=== PATIENT | male | born 1960 | race Caucasian/White ===

== ENCOUNTER 2016-08-23 12:32 | Emergency (ER) | payer MEDICAID ==
--- NOTE | 2016-08-23 13:20 | EDM.PDOC ---
ED HPI GI/ABDOMINAL - General Chief Complaint: Gastrointestinal Problem Stated Complaint: BLOOD IN STOOL Time Seen by Provider: 08/23/16 12:49 Source of Information: Reports: Patient, RN notes reviewed History Limitations: Reports: No limitations - History of Present Illness INITIAL COMMENTS - FREE TEXT/NARRATIVE: The patient states that he has had epigastric pain for 3 days - a burning sensation that feels better if he eats crackers and milk. He also reports black constipation for the past 2 days. The patient states that he started metformin 4 days ago, for newly diagnosed diabetes. He reports nausea, but no vomiting. No urinary symptoms. The patient has been taking Pepto-Bismol 3 times a day for the past 2 days, and started taking [id number] Prilosec once a day, 2 days ago. The patient reports similar symptoms about 7 years ago. 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 He states that he was treated with an acid medicine for about 2 years, but let it lapse. His last EGD was about a year ago, in [place]. - Related Data Allergies/ADRs: Allergies Allergy/AdvReac Type Severity Reaction Status Date / Time No Known Allergies Allergy Verified 08/23/16 12:40 Home Meds: Home Meds Lisinopril [Prinivil] 10 mg PO DAILY 08/23/16 [History] Nadolol [Naldol] 40 mg PO DAILY 08/23/16 [History] Omeprazole 20 mg PO DAILY 08/23/16 [History] metFORMIN HCl [Glucophage] 1,000 mg PO BID 08/23/16 [History] Past Medical History Cardiovascular History: Reports: Hypertension Gastrointestinal History: Reports: Cirrhosis (With esophageal varices), Colon polyp, GERD (With Caldera esophagus), Hepatitis Genitourinary History: Reports: Renal calculus Endocrine/Metabolic History: Reports: Diabetes, type II - Past Surgical History HEENT Surgical History: Reports: Oral surgery (Numerous teeth extractions) GI Surgical History: Reports: Hernia repair/other (Umbilical herniorrhaphy 2012) , Other (see below) (Splenectomy 2001. Pyloric stenosis release as an infant) Musculoskeletal Surgical History: Reports: Carpal tunnel (bilateral) Social & Family History - Tobacco Use Smoking Status *Q: Current Every Day Smoker Years of Tobacco use: 10 Packs/Tins Daily: 0.3 Packs/Tins Daily Comment: Down from 05/26 ppd - Alcohol Use Alcohol Use History: Yes Alcohol Use Frequency: Rarely - Recreational Drug Use Recreational Drug Use: No - Living Situation & Occupation Living situation: Reports: single, other (with a friend) Occupation: unemployed ED ROS GENERAL - Review of Systems Review Of Systems: See Below Constitutional: Reports: no symptoms HEENT: Reports: No symptoms Respiratory: Reports: No Symptoms Cardiovascular: Reports: No symptoms Endocrine: Reports: no symptoms GI/Abdominal: Reports: No symptoms : Reports: no symptoms Musculoskeletal: Reports: no symptoms Skin: Reports: no symptoms Neurological: Reports: No Symptoms Psychiatric: Reports: No symptoms Hematologic/Lymphatic: Reports: no symptoms Immunologic: Reports: no symptoms ED EXAM, GI/ABD - Physical Exam Exam: See Below Exam Limited By: No limitations General Appearance: alert, WD/WN, no apparent distress Eyes: bilateral: normal appearance, EOMI Ears: normal external exam, hearing grossly normal Nose: normal inspection, no blood Throat/Mouth: Normal inspection, Normal lips, Normal voice, No airway compromise Head: atraumatic, normocephalic Neck: normal inspection, full range of motion Respiratory/Chest: no respiratory distress, lungs clear, normal breath sounds, no accessory muscle use Cardiovascular: normal peripheral pulses, regular rate, rhythm, no edema, no gallop, no JVD, no murmur, no rub GI/Abdominal: normal bowel sounds, soft, no organomegaly, no distention, no abnormal bruit, no mass, tenderness (Epigastric region only. Nontender elsewhere.) (Male) Exam: Deferred Rectal (Males) Exam: Normal exam, Normal rectal tone, Prostate normal, Black stool, Heme - stool Back Exam: normal inspection, full range of motion. No: CVA tenderness (L), CVA tenderness (R) Extremities: normal inspection, normal range of motion, no pedal edema, normal capillary refill Neurological: alert, oriented, normal cognition, no motor/sensory deficits Psychiatric: normal affect Skin Exam: Warm, Dry, Intact, Normal color, No rash Lymphatic: no adenopathy Course - Vital Signs Last Recorded V/S: Last Vital Signs Temp 36.4 C 08/23/16 12:40 Pulse 72 08/23/16 13:30 Resp 16 08/23/16 12:40 BP 133/72 08/23/16 13:30 Pulse Ox 97 08/23/16 13:30 - Re-Assessments/Exams Free Text/Narrative Re-Assessment/Exam: 08/23/16 13:15 The patient's stool is dark, but heme negative. It is almost certainly because of the Pepto-Bismol that he has been taking. With respect to his dyspepsia, I am recommending that he increase his Prilosec to twice a day, and that if his symptoms persist, he should followup with Dr. Puentes for possible EGD. 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 Departure - Departure Time of Disposition: 13:16 Disposition: Home, Self-Care 01 Condition: good Clinical Impression: Stool color black, Dyspepsia Referrals: Rakesh Sevilla PA-C [Primary Care Provider] - Yelitza Puentes MD [Physician] - Forms: ED Department Discharge Additional Instructions: You were seen in the emergency room today for black stools and upper abdominal pain. On examination, your stools are dark, but blood-negative. It is MOST LIKELY that your stools are dark because of the Pepto-Bismol that you have been taking. We recommend that you stop taking Pepto-Bismol right away. We recommend that you increase your Prilosec to one tablet twice a day. If you are still having abdominal pain after a few days of taking Prilosec twice a day, please followup with the surgeon Dr. Yelitza Puentes for evaluation, including a possible EGD. Your metformin should be swallowed whole. Do not crush it, break it, or chew it. Take it with food. If any other problems, please do not hesitate to return to the ER.
[2016-08-23 14:05] VITALS: BP 133/72
== END 2016-08-23 13:35 | disposition home or self-care (01) ==
LOC: JD.ED 12:32
DX: R10.13 Epigastric pain (principal); E11.9 Type 2 diabetes mellitus without complications; R19.5 Other fecal abnormalities; F17.210 Nicotine dependence, cigarettes, uncomplicated; Z79.899 Other long term (current) drug therapy; Z79.84 Long term (current) use of oral hypoglycemic drugs; Z98.890 Other specified postprocedural states
CPT/HCPCS: 99282; 99283

== ENCOUNTER 2017-02-21 03:51 | Emergency (ER) | payer MEDICAID ==
[2017-02-21 04:01] VITALS: BP 148/72
[2017-02-21] MEDS ORDERED: Acetaminophen/oxyCODONE 325-5 MG Tab PO ONE (04:19)
[2017-02-21] MEDS ORDERED: Clindamycin HCl 150 MG Cap PO ONE (04:20)
--- NOTE | 2017-02-21 04:23 | EDM.PDOC ---
ED HPI GENERAL MEDICAL PROBLEM - General Chief Complaint: ENT Problem Stated Complaint: POSS INFECTION IN MOUTH Time Seen by Provider: 02/21/17 04:17 Source of Information: Reports: Patient History Limitations: Reports: No Limitations - History of Present Illness INITIAL COMMENTS - FREE TEXT/NARRATIVE: 56-year-old male presents the ED due to dental pain and inability to sleep due to the throbbing discomfort. He's had swelling and pain in his right upper gingiva margin for the better part of a week. [employer] and was not home until today. States tonight he can't sleep because of the severity of the pain. He admits that he drank 4 beers and is used to Ambasil topically and taken Advil without relief. Of note he said all of his upper teeth removed over the last year. He still is getting shards of teeth or bone coming out of the gingiva margin intermittently since time of surgery. Pain is radiating up into his right ear in hurting his whole right face. 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: Reports: Acetaminophen, NSAIDS, Other (see below) (Ambasil.) Right Upper Tooth/Teeth Pain Score (Numeric/FACES): 10 - Related Data Allergies Allergy/AdvReac Type Severity Reaction Status Date / Time No Known Allergies Allergy Verified 02/21/17 04:01 Home Meds: Home Meds Nadolol [Naldol] 40 mg PO DAILY 08/23/16 [History] Omeprazole 20 mg PO DAILY 08/23/16 [History] metFORMIN HCl [Glucophage] 1,000 mg PO BID 08/23/16 [History] Clindamycin HCl 300 mg PO TID #24 capsule 02/21/17 [Rx] oxyCODONE HCl/Acetaminophen [Percocet 5-325 mg Tablet] 1 - 2 each PO Q4H PRN # 20 tablet 02/21/17 [Rx] Past Medical History Cardiovascular History: Reports: Hypertension Gastrointestinal History: Reports: Cirrhosis, Colon Polyp, GERD, Hepatitis Genitourinary History: Reports: Renal Calculus Endocrine/Metabolic History: Reports: Diabetes, Type II - Past Surgical History HEENT Surgical History: Reports: Oral Surgery GI Surgical History: Reports: Hernia Repair/Other, Other (See Below) Other GI Surgeries/Procedures: pyloric stenosis Musculoskeletal Surgical History: Reports: Carpal Tunnel Social & Family History - Family History Cardiac: Reports: Hypertension - Tobacco Use Smoking Status *Q: Current Every Day Smoker Years of Tobacco use: 30 Packs/Tins Daily: 0.5 - Caffeine Use Caffeine Use: Reports: Coffee - Recreational Drug Use Recreational Drug Use: No - Living Situation & Occupation Living situation: Reports: Single, Other Occupation: Unemployed ED ROS ENT - Review of Systems Review Of Systems: See Below Constitutional: Reports: Fatigue, Decreased Appetite (not sleeping.). Denies: Fever, Chills, Malaise, Weakness, Weight Loss HEENT: Reports: Dental Pain (right upper gingiva is painful and swollen.), Ear Pain (he is referred to his right ear.), Other Respiratory: Reports: No Symptoms (right hemifacial pain), Wheezing ( chronically from cigarette smoking), Cough Cardiovascular: Reports: No Symptoms (occasionally.) Endocrine: Reports: No Symptoms GI/Abdominal: Reports: No Symptoms : Reports: No Symptoms Musculoskeletal: Reports: Neck Pain, Back Pain (occasionally) Skin: Reports: No Symptoms (occasionally.) Neurological: Reports: No Symptoms Psychiatric: Reports: No Symptoms ED EXAM, ENT - Physical Exam Exam: See Below Exam Limited By: Intoxication General Appearance: Alert, Moderate Distress Eye Exam: Bilateral Eye: Nystagmus Ears: Normal TMs Mouth/Throat: Normal Lips, Other (all the upper teeth have been previously removed. He does have swelling and erythema of the right upper mucosa). No: Normal Gums, Normal Oropharynx, Normal Teeth Head: Atraumatic Neck: Normal Inspection, Supple, Non-Tender, Full Range of Motion. No: Lymphadenopathy (L), Lymphadenopathy (R) Respiratory/Chest: No Respiratory Distress, No Accessory Muscle Use, Wheezing ( on forced expiration.) Cardiovascular: Normal Peripheral Pulses, Regular Rate, Rhythm, No Edema, No Gallop, No Murmur Course - Vital Signs Last Recorded V/S: Last Vital Signs Temp 36.4 C 02/21/17 03:57 Pulse 84 02/21/17 03:57 Resp 16 02/21/17 03:57 BP 148/72 H 02/21/17 03:57 Pulse Ox 97 02/21/17 03:57 - Orders/Labs/Meds Meds: Medications Discontinued Medications Generic Name Dose Route Start Last Admin Trade Name Freq PRN Reason Stop Dose Admin Clindamycin HCl 300 mg 02/21/17 04:20 Cleocin PO 02/21/17 04:21 ONETIME ONE Oxycodone/Acetaminophen 2 tab 02/21/17 04:19 Percocet 325-5 Mg PO 02/21/17 04:20 ONETIME ONE - Radiology Interpretation Free Text/Narrative:: 56-year-old male slightly intoxicated presents to the ED due to persistent upper gingiva pain. He said all of his upper teeth removed over the last year. Still spitting out intermittent shards of bone and or teeth. Has developed a gingiva all abscess right upper maxillary area over the last 5 days. Can stand the pain tonight. He drank 4 beer and is used ampicillin Motrin with no relief. On examination there is evidence of erythema swelling and pain over the right upper gingiva margin which would be in the position of the first molar tooth. No abscess is evident that would benefit from drainage. Treated with clindamycin 300 mg 3 times a day for the next 8 days first tablet provided through the ED. Percocet tabs 5/3/25 one or 2 every 4-6 hours for pain relief. Continue Motrin 600 mg every 6 hours for pain and inflammation as well. Her up with dentist for panoramic x-ray to see if there is a piece of bone or tooth that needs excision if similar problems persist. Departure - Departure Time of Disposition: 04:17 Disposition: Home, Self-Care 01 Condition: Fair Clinical Impression: Gingival abscess - Discharge Information Prescriptions: Clindamycin HCl 300 mg PO TID #24 capsule oxyCODONE HCl/Acetaminophen [Percocet 5-325 mg Tablet] 1 - 2 each PO Q4H PRN # 20 tablet PRN Reason: pain relief. Referrals: PCP,None [Primary Care Provider] - Forms: ED Department Discharge Additional Instructions: Evaluation the emergency room today in regards to pain in the upper right gingiva. Previous total extraction of all teeth from the upper teeth over a year ago. Development of pain and swelling in the right gingiva over week ago. Is there is most likely a broken piece of bone or tooth retained underneath the gingiva margin that is likely infected. Secondary infection can occur from rubbing of the gingiva from dentures.. At any rate there is an evidence of an infection the right upper gingiva. Treatment is therefore continuing Motrin 6 mg every 6 hours to relieve pain and inflammation. Percocet tabs one or 2 every 4-6 hours for pain not relieved by Motrin alone. Of note if you take these tablets you cannot operate a motor vehicle or machinery as they may impair your judgment and coordination. Antibiotic is to be clindamycin 300 mg 3 times daily for the next 8 days to clear up infection. The pros persist follow-up with dentist as advised as the panoramic dental x-ray machine can pickup broken bone or residual broken tooth in the gingiva that may deep need to be removed.
== END 2017-02-21 04:30 | disposition home or self-care (01) ==
LOC: JD.ED 03:51
DX: K05.219 Aggressive periodontitis, localized, unspecified severity (principal); I10 Essential (primary) hypertension; E11.9 Type 2 diabetes mellitus without complications; F17.210 Nicotine dependence, cigarettes, uncomplicated; Z79.84 Long term (current) use of oral hypoglycemic drugs; Z79.899 Other long term (current) drug therapy
CPT/HCPCS: 99283; A9270

== ENCOUNTER 2017-04-10 04:45 | Emergency (ER) | payer MEDICAID ==
[2017-04-10] MEDS ORDERED: Ondansetron 4 MG/2 ML SDV IVPUSH ONE (05:07)
[2017-04-10] MEDS ORDERED: Sodium Chloride 0.9% 10 ML Syringe FLUSH PRN (05:07)
[2017-04-10] MEDS ORDERED: Pantoprazole 40 MG Vial IVPUSH ONE (05:08)
--- NOTE | 2017-04-10 05:14 | EDM.PDOC ---
ED HPI GENERAL MEDICAL PROBLEM - General Chief Complaint: Gastrointestinal Problem Stated Complaint: VOMMITING BLOOD Time Seen by Provider: 04/10/17 05:06 Source of Information: Reports: Patient History Limitations: Reports: No Limitations - History of Present Illness INITIAL COMMENTS - FREE TEXT/NARRATIVE: The patient presents this morning because he vomited blood. The patient has a history of esophageal verricies, smith's esophagus and GERD. He is on omeprazole 2 times per day. He quit drinking years ago but last night he was feeling stressed out and drank some vodka. This morning he was nauseated and vomited up some blood. He has no abdominal pain at this time. He denies fever. He had some chills just before he vomited. He was also breathing hard. He has no chest pain or shortness of breath. Onset: Sudden Duration: Minutes: Location: Reports: Abdomen Quality: Reports: Ache (Gone now) Severity: Mild Improves with: Reports: None Worsens with: Reports: None Context: Reports: Activity (He woke up from sleeping and vomitted) Associated Symptoms: Reports: Nausea/Vomiting. Denies: Chest Pain, Cough, Fever /Chills, Headaches, Shortness of Breath - Related Data Allergies Allergy/AdvReac Type Severity Reaction Status Date / Time No Known Allergies Allergy Verified 02/21/17 04:01 Home Meds: Home Meds Nadolol [Naldol] 40 mg PO DAILY 08/23/16 [History] Omeprazole 20 mg PO DAILY 08/23/16 [History] metFORMIN HCl [Glucophage] 1,000 mg PO BID 08/23/16 [History] Clindamycin HCl 300 mg PO TID #24 capsule 02/21/17 [Rx] Hydrocodone/Acetaminophen [Hydrocodon-Acetaminophen 5-325] 1 - 2 each PO Q6HR PRN #20 tablet 04/10/17 [Rx] Past Medical History Cardiovascular History: Reports: Hypertension Gastrointestinal History: Reports: Cirrhosis, Colon Polyp, GERD, GI Bleed, Hepatitis, Other (See Below) Other Gastrointestinal History: esophageal varices Genitourinary History: Reports: Renal Calculus Endocrine/Metabolic History: Reports: Diabetes, Type II - Past Surgical History HEENT Surgical History: Reports: Oral Surgery GI Surgical History: Reports: Hernia Repair/Other, Other (See Below) Other GI Surgeries/Procedures: pyloric stenosis Musculoskeletal Surgical History: Reports: Carpal Tunnel Social & Family History - Family History Family Medical History: Noncontributory Cardiac: Reports: Hypertension - Tobacco Use Smoking Status *Q: Current Every Day Smoker Years of Tobacco use: 40 Packs/Tins Daily: 0.5 - Caffeine Use Caffeine Use: Reports: Coffee - Alcohol Use Date of Last Drink: 04/09/17 Time of Last Drink: 22:00 - Recreational Drug Use Recreational Drug Use: No - Living Situation & Occupation Living situation: Reports: Single, Other Occupation: Unemployed ED ROS GENERAL - Review of Systems Review Of Systems: See Below Constitutional: Reports: Chills. Denies: Fever HEENT: Reports: No Symptoms Respiratory: Reports: No Symptoms Cardiovascular: Reports: No Symptoms Endocrine: Reports: No Symptoms GI/Abdominal: Reports: Nausea, Vomiting. Denies: Abdominal Pain : Reports: No Symptoms Musculoskeletal: Reports: No Symptoms Skin: Reports: No Symptoms ED EXAM, GI/ABD - Physical Exam Exam: See Below Exam Limited By: No Limitations General Appearance: Alert, No Apparent Distress Ears: Normal External Exam Nose: Normal Inspection Head: Atraumatic, Normocephalic Neck: Normal Inspection Respiratory/Chest: No Respiratory Distress, Lungs Clear, Normal Breath Sounds Cardiovascular: Regular Rate, Rhythm, No Edema, No Murmur GI/Abdominal Exam: Soft, Non-Tender, No Organomegaly, No Mass Back Exam: Normal Inspection Extremities: Normal Inspection Course - Vital Signs Last Recorded V/S: Last Vital Signs Temp 97.4 F 04/10/17 04:51 Pulse 88 04/10/17 04:51 Resp 16 04/10/17 04:51 BP Pulse Ox 96 04/10/17 04:51 - Orders/Labs/Meds Orders: Active Orders 24 hr Category Date Time Status Cardiac Monitoring [RC] . DIRECTED Care 04/10/17 05:07 Active Peripheral IV Care [RC] . DIRECTED Care 04/10/17 05:07 Active PATIENT RETYPE [BBK] Stat Lab 04/10/17 04:55 Results TYPE AND SCREEN [BBK] Stat Lab 04/10/17 04:55 Results Pantoprazole [ProTONIX IV] 80 mg Med 04/10/17 05:15 Active Sodium Chloride 0.9% [Normal Saline] 100 ml IV Q10H Sodium Chloride 0.9% [Normal Saline] 1,000 ml Med 04/10/17 05:15 Active IV ASDIRECTED Sodium Chloride 0.9% [Saline Flush] Med 04/10/17 05:07 Active 10 ml FLUSH ASDIRECTED PRN ED Antiemetic Medication Reflex [OM.PC] Stat Oth 04/10/17 05:07 Ordered Peripheral IV Insertion Adult [OM.PC] Stat Oth 04/10/17 05:07 Ordered Medication Orders Pantoprazole Sodium 80 mg/ (Sodium Chloride) 100 mls @ 10 mls/hr IV Q10H FAITH Last Admin: 04/10/17 05:24 Dose: 10 mls/hr Sodium Chloride (Normal Saline) 1,000 mls @ 125 mls/hr IV ASDIRECTED FAITH Last Admin: 04/10/17 05:24 Dose: 125 mls/hr Sodium Chloride (Saline Flush) 10 ml FLUSH ASDIRECTED PRN PRN Reason: Keep Vein Open Last Admin: 04/10/17 05:24 Dose: 10 ml Labs: Laboratory Tests 04/10/17 04/10/17 04/10/17 Range/Units 04:55 04:55 04:55 WBC 6.77 (4.23-9.07) K/mm3 RBC 3.73 L (4.63-6.08) M/mm3 Hgb 11.6 L (13.7-17.5) gm/L Hct 33.7 L (40.1-51.0) % MCV 90.3 (79.0-92.2) fl MCH 31.1 (25.7-32.2) pg MCHC 34.4 (32.2-35.5) g/dl RDW Std Deviation 49.4 H (35.1-43.9) fL Plt Count 126 L (163-337) K/mm3 MPV 12.5 H (9.4-12.3) fl Neut % (Auto) 34.3 (34.0-67.9) % Lymph % (Auto) 44.6 (21.8-53.1) % Ector % (Auto) 15.4 H (5.3-12.2) % Eos % (Auto) 4.9 (0.8-7.0) Baso % (Auto) 0.7 (0.1-1.2) % Neut # (Auto) 2.32 (1.78-5.38) K/mm3 Lymph # (Auto) 3.02 (1.32-3.57) K/mm3 Ector # (Auto) 1.04 H (0.30-0.82) K/mm3 Eos # (Auto) 0.33 (0.04-0.54) K/mm3 Baso # (Auto) 0.05 (0.01-0.08) K/mm3 Manual Slide Review Abnormal smear Sodium 135 L (136-145) mEq/L Potassium 5.1 (3.5-5.1) mEq/L Chloride 103 (98-107) mEq/L Carbon Dioxide 21 (21-32) mEq/L Anion Gap 16.1 H (5-15) BUN 24 H (7-18) mg/dL Creatinine 1.2 (0.7-1.3) mg/dL Est Cr Clr Drug Dosing 78.01 mL/min Estimated GFR (MDRD) > 60 (>60) mL/min BUN/Creatinine Ratio 20.0 H (14-18) Glucose 196 H (74-106) mg/dL Calcium 10.0 (8.5-10.1) mg/dL Total Bilirubin 3.7 H (0.2-1.0) mg/dL AST 71 H (15-37) U/L ALT 42 (16-63) U/L Alkaline Phosphatase 130 H (46-116) U/L Total Protein 7.1 (6.4-8.2) g/dl Albumin 2.3 L (3.4-5.0) g/dl Globulin 4.8 gm/dL Albumin/Globulin Ratio 0.5 L (1-2) Lipase 611 H (73-393) U/L Ethyl Alcohol 0.03 (0.00) gm% Blood Type A POSITIVE Gel Antibody Screen Negative Meds: Medications Generic Name Dose Route Start Last Admin Trade Name Freq PRN Reason Stop Dose Admin Pantoprazole Sodium 80 mg/ 100 mls @ 10 mls/hr 04/10/17 05:15 04/10/17 05:24 Sodium Chloride IV 10 mls/hr Q10H FAITH Administration Sodium Chloride 1,000 mls @ 125 mls/hr 04/10/17 05:15 04/10/17 05:24 Normal Saline IV 125 mls/hr ASDIRECTED FAITH Administration Sodium Chloride 10 ml 04/10/17 05:07 04/10/17 05:24 Saline Flush FLUSH 10 ml ASDIRECTED PRN Administration Keep Vein Open Discontinued Medications Generic Name Dose Route Start Last Admin Trade Name Obed PRN Reason Stop Dose Admin Lidocaine HCl 1 ml 04/10/17 05:30 Xylocaine 4% Top Soln MUCMEM 04/10/17 05:31 ONETIME ONE Lidocaine HCl 15 ml 04/10/17 05:35 04/10/17 05:36 Xylocaine 2% Viscous MUCMEM 04/10/17 05:36 15 ml ASDIRECTED ONE Administration Lidocaine HCl Confirm 04/10/17 05:37 Xylocaine 2% Viscous Administered 04/10/17 05:38 Dose 15 ml .ROUTE .STK-MED ONE Ondansetron HCl 4 mg 04/10/17 05:07 04/10/17 05:24 Zofran IVPUSH 04/10/17 05:08 4 mg ONETIME ONE Administration Pantoprazole Sodium 80 mg 04/10/17 05:08 04/10/17 05:24 Protonix Iv IVPUSH 04/10/17 05:09 80 mg .BOLUS ONE Administration - Re-Assessments/Exams Free Text/Narrative Re-Assessment/Exam: 04/10/17 05:14 I ordered an IV NS at 125mL/hr, zofran 4mg IV, protonix 80mg IV, protonix drip of 8mg/hr, labs and type and screen. 04/10/17 06:37 His Hgb was a little low at 11.6. His Na was a little low at 135. His glucose was elevated at 196. His AST was elevated at 71. His lipase was elevated at 611. His ETOH was elevated at 0.03. He is feeling better and he has not vomited. I gave him some viscus lidocaine for a gum infection he is dealing with. He is taking clindamycin for it. Departure - Departure Time of Disposition: 06:40 Disposition: Home, Self-Care 01 Condition: Good Clinical Impression: Gingival abscess, Dyspepsia Hematemesis Qualifiers: Nausea presence: with nausea Qualified Code(s): K92.0 - Hematemesis Gastritis Qualifiers: Gastritis type: alcoholic Chronicity: acute Gastritis bleeding: with bleeding Qualified Code(s): K29.21 - Alcoholic gastritis with bleeding Pancreatitis Qualifiers: Chronicity: acute Pancreatitis type: alcohol induced Acute pancreatitis complication: no infection or necrosis Qualified Code(s): K85.20 - Alcohol induced acute pancreatitis without necrosis or infection - Discharge Information Prescriptions: Hydrocodone/Acetaminophen [Hydrocodon-Acetaminophen 5-325] 1 - 2 each PO Q6HR PRN #20 tablet PRN Reason: Pain Referrals: PCP,None [Primary Care Provider] - Mikel Marquez [Physician] - 1 Week Forms: ED Department Discharge Additional Instructions: Take omeprazole as prescribed 2 times per day. Drink clear liquids today and advance tomorrow as tolerated. Please return if you are worse. Such as more pain, nausea or vomiting. Do not drink alcohol. - My Orders Last 24 Hours: My Active Orders 04/10/17 04:55 PATIENT RETYPE [BBK] Stat TYPE AND SCREEN [BBK] Stat 04/10/17 05:07 Cardiac Monitoring [RC] . DIRECTED Peripheral IV Care [RC] . DIRECTED Sodium Chloride 0.9% [Saline Flush] 10 ml FLUSH ASDIRECTED PRN ED Antiemetic Medication Reflex [OM.PC] Stat Peripheral IV Insertion Adult [OM.PC] Stat 04/10/17 05:15 Pantoprazole [ProTONIX IV] 80 mg Sodium Chloride 0.9% [Normal Saline] 100 ml IV Q10H Sodium Chloride 0.9% [Normal Saline] 1,000 ml IV ASDIRECTED - Assessment/Plan Last 24 Hours: My Active Orders 04/10/17 04:55 PATIENT RETYPE [BBK] Stat TYPE AND SCREEN [BBK] Stat 04/10/17 05:07 Cardiac Monitoring [RC] . DIRECTED Peripheral IV Care [RC] . DIRECTED Sodium Chloride 0.9% [Saline Flush] 10 ml FLUSH ASDIRECTED PRN ED Antiemetic Medication Reflex [OM.PC] Stat Peripheral IV Insertion Adult [OM.PC] Stat 04/10/17 05:15 Pantoprazole [ProTONIX IV] 80 mg Sodium Chloride 0.9% [Normal Saline] 100 ml IV Q10H Sodium Chloride 0.9% [Normal Saline] 1,000 ml IV ASDIRECTED
[2017-04-10] MEDS ORDERED: Sodium Chloride 0.9% 1,000 ML IV SCH (05:15)
[2017-04-10] MEDS ORDERED: Pantoprazole 80 MG in Sodium Chloride 0.9% 100 ML IV SCH (05:15)
[2017-04-10] MEDS ORDERED: Lidocaine 4% Top Soln 50 ML Bottle MUCMEM ONE (05:30)
[2017-04-10] MEDS ORDERED: Lidocaine 2% Viscous Solution 15 ML Cup MUCMEM ONE (05:35)
[2017-04-10] MEDS ORDERED: Lidocaine 2% Viscous Solution 15 ML Cup ONE (05:37)
== END 2017-04-10 06:55 | disposition home or self-care (01) ==
LOC: JD.ED 04:45
DX: K29.21 Alcoholic gastritis with bleeding (principal); K85.20 Alcohol induced acute pancreatitis without necrosis or infection; K05.219 Aggressive periodontitis, localized, unspecified severity; I10 Essential (primary) hypertension; E11.9 Type 2 diabetes mellitus without complications; F17.210 Nicotine dependence, cigarettes, uncomplicated; Z79.84 Long term (current) use of oral hypoglycemic drugs; Z79.899 Other long term (current) drug therapy
CPT/HCPCS: 36415; 80053; 83690; 85025; 86850; 86900; 86901; 96361; 96365; 96376; 99284; A9270; C9113; G0480; J2405; J7030; J7040; J7050

== ENCOUNTER 2017-04-13 13:08 | Emergency (ER) | payer MEDICAID ==
[2017-04-13 13:26] VITALS: BP 140/74
--- NOTE | 2017-04-13 14:06 | EDM.PDOC ---
ED HPI GENERAL MEDICAL PROBLEM - General Chief Complaint: ENT Problem Stated Complaint: MOUTH INFECTION/BLACK STOOL Time Seen by Provider: 04/13/17 13:54 Source of Information: Reports: Patient History Limitations: Reports: No Limitations - History of Present Illness INITIAL COMMENTS - FREE TEXT/NARRATIVE: Patient is a 57-year-old male with a history of esophageal varices was evaluated this past week for vomiting up blood. Patient states he drank approximately 1 pint of vodka that day thus prompting the bleeding. Bleeding subsided. He was started on omeprazole and has been taking 40 mg every day. In addition at that time was diagnosed with abscess to the left gumline with increased swelling noted. Patient has no teeth to the upper palate they have all been pulled. Has been taking clindamycin and hydrocodone as prescribed. States the swelling has come down since yesterday. Continues to have pain present. Has not been taking any NSAIDs as instructed. He has noticed some black tarry stools concerning for GI bleed. Denies any dizziness, shortness of breath, chest pain, abdominal pain, nausea/vomiting, dysuria, or any additional complaints. Gums Pain Score (Numeric/FACES): 10 - Related Data Allergies Allergy/AdvReac Type Severity Reaction Status Date / Time No Known Allergies Allergy Verified 04/13/17 13:19 Home Meds: Home Meds Omeprazole 20 mg PO DAILY 08/23/16 [History] metFORMIN HCl [Glucophage] 1,000 mg PO BID 08/23/16 [History] Clindamycin HCl 300 mg PO TID #24 capsule 02/21/17 [Rx] Hydrocodone/Acetaminophen [Hydrocodon-Acetaminophen 5-325] 1 - 2 each PO Q6HR PRN #20 tablet 04/10/17 [Rx] Nadolol [Naldol] 40 mg PO DAILY #30 04/13/17 [Rx] Past Medical History HEENT History: Reports: Impaired Vision Cardiovascular History: Reports: Hypertension Gastrointestinal History: Reports: Cirrhosis, Colon Polyp, GERD, GI Bleed, Hepatitis, Other (See Below) Other Gastrointestinal History: esophageal varices Genitourinary History: Reports: Renal Calculus Endocrine/Metabolic History: Reports: Diabetes, Type II - Past Surgical History HEENT Surgical History: Reports: Oral Surgery GI Surgical History: Reports: Hernia Repair/Other, Other (See Below) Other GI Surgeries/Procedures: pyloric stenosis Musculoskeletal Surgical History: Reports: Carpal Tunnel Social & Family History - Family History Family Medical History: Noncontributory Cardiac: Reports: Hypertension - Tobacco Use Smoking Status *Q: Current Every Day Smoker Years of Tobacco use: 1 Packs/Tins Daily: 20 - Caffeine Use Caffeine Use: Reports: Coffee - Recreational Drug Use Recreational Drug Use: No - Living Situation & Occupation Living situation: Reports: Single, Other Occupation: Unemployed ED ROS GENERAL - Review of Systems Review Of Systems: ROS reveals no pertinent complaints other than HPI. ED EXAM, GI/ABD - Physical Exam Exam: See Below Exam Limited By: No Limitations General Appearance: Alert, WD/WN, No Apparent Distress Ears: Hearing Grossly Normal Nose: Normal Inspection Throat/Mouth: Normal Voice, No Airway Compromise, Other (Faint swelling noted to the left upper palate along the gumline. Minimal tenderness on palpation. No drainage noted. Teeth present.) Head: Atraumatic, Normocephalic Neck: Normal Inspection, Supple, Non-Tender, Full Range of Motion Respiratory/Chest: No Respiratory Distress, Lungs Clear, Normal Breath Sounds, No Accessory Muscle Use, Chest Non-Tender Cardiovascular: Normal Peripheral Pulses, Regular Rate, Rhythm GI/Abdominal Exam: Normal Bowel Sounds, Soft, Non-Tender, No Organomegaly, No Distention Extremities: Non-Tender, No Pedal Edema Neurological: Alert, Oriented, CN II-XII Intact, Normal Cognition, No Motor/ Sensory Deficits Psychiatric: Normal Affect, Normal Mood Skin Exam: Warm, Dry, Intact, Normal Color Course - Vital Signs Last Recorded V/S: Last Vital Signs Temp 97.5 F 04/13/17 13:24 Pulse 74 04/13/17 13:24 Resp 16 04/13/17 13:24 BP 140/74 04/13/17 13:24 Pulse Ox 99 04/13/17 13:24 - Orders/Labs/Meds Orders: Active Orders 24 hr Category Date Time Status Hemoccult [Fecal Occult Blood Collection] [RC] Care 04/13/17 14:02 Active ASDIRECTED Labs: Laboratory Tests 04/13/17 04/13/17 Range/Units 14:10 14:10 WBC 8.35 (4.23-9.07) K/mm3 RBC 3.40 L (4.63-6.08) M/mm3 Hgb 10.5 L (13.7-17.5) gm/L Hct 31.2 L (40.1-51.0) % MCV 91.8 (79.0-92.2) fl MCH 30.9 (25.7-32.2) pg MCHC 33.7 (32.2-35.5) g/dl RDW Std Deviation 51.9 H (35.1-43.9) fL Plt Count 163 (163-337) K/mm3 MPV 11.8 (9.4-12.3) fl Neut % (Auto) 41.4 (34.0-67.9) % Lymph % (Auto) 34.1 (21.8-53.1) % Henderson % (Auto) 19.6 H (5.3-12.2) % Eos % (Auto) 4.3 (0.8-7.0) Baso % (Auto) 0.5 (0.1-1.2) % Neut # (Auto) 3.45 (1.78-5.38) K/mm3 Lymph # (Auto) 2.85 (1.32-3.57) K/mm3 Henderson # (Auto) 1.64 H (0.30-0.82) K/mm3 Eos # (Auto) 0.36 (0.04-0.54) K/mm3 Baso # (Auto) 0.04 (0.01-0.08) K/mm3 Manual Slide Review Abnormal smear Sodium 139 (136-145) mEq/L Potassium 4.2 (3.5-5.1) mEq/L Chloride 103 (98-107) mEq/L Carbon Dioxide 26 (21-32) mEq/L Anion Gap 14.2 (5-15) BUN 17 (7-18) mg/dL Creatinine 1.1 (0.7-1.3) mg/dL Est Cr Clr Drug Dosing 61.29 mL/min Estimated GFR (MDRD) > 60 (>60) mL/min BUN/Creatinine Ratio 15.5 (14-18) Glucose 151 H (74-106) mg/dL Calcium 9.4 (8.5-10.1) mg/dL Total Bilirubin 2.8 H (0.2-1.0) mg/dL AST 90 H (15-37) U/L ALT 49 (16-63) U/L Alkaline Phosphatase 144 H (46-116) U/L Total Protein 7.2 (6.4-8.2) g/dl Albumin 2.5 L (3.4-5.0) g/dl Globulin 4.7 gm/dL Albumin/Globulin Ratio 0.5 L (1-2) Meds: Medications Discontinued Medications Generic Name Dose Route Start Last Admin Trade Name Obed PRN Reason Stop Dose Admin Hydromorphone HCl 1 mg 04/13/17 16:44 04/13/17 17:18 Dilaudid IM 04/13/17 16:45 1 mg ONETIME ONE Administration - Re-Assessments/Exams Free Text/Narrative Re-Assessment/Exam: Reviewed previous E.D. visit 04/10/2017. The patient presents this morning because he vomited blood. The patient has a history of esophageal verricies, smith's esophagus and GERD. He is on omeprazole 2 times per day. He quit drinking years ago but last night he was feeling stressed out and drank some vodka. This morning he was nauseated and vomited up some blood. Hemoglobin at that time was 11.6, BUN of 24, creatinine 1.2, lipase 611, EtOH 0.03. He was started on a Protonix drip. He had no additional bleeding this was discharged home. Will obtain basic labs including CBC and chem 14. Stool Hemoccult test will be performed once stool samples present. Stool positive for blood. 04/13/17 16:27 Labs reviewed: White blood cell count 8.35, hemoglobin 10.5 which is a drop from 11.63 days ago. Platelet count 163. Sodium 139, potassium 4.2, BUN 17, creatinine 1.1, glucose 151, total bilirubin is 2.8, AST 90, and alk phosphatase 144. Spoke with Dr. [facility] at [facility]. Suggested having the patient call and make an appointment to be seen by GI specialist for earliest appointment. Discharge instructions as documented. Departure - Departure Time of Disposition: 16:27 Disposition: Home, Self-Care 01 Condition: Good Clinical Impression: GI bleed Qualifiers: GI bleed type/associated pathology: melena Qualified Code(s): K92.1 - Melena Anemia Qualifiers: Anemia type: unspecified type Qualified Code(s): D64.9 - Anemia, unspecified - Discharge Information Instructions: Gastrointestinal Bleeding, [id number] Referrals: PCP,None [Primary Care Provider] - Forms: ED Department Discharge Additional Instructions: Continue taking the omeprazole 20 mg twice a day. Refrain from drinking alcohol. Start taking naldol 40 mg everyday. Call and make an appointment with the GI specialists at [facility] for earliest appointment. Return back to the ED if you develop any new or worsening symptoms as discussed. In regards to the gum discomfort. Continue taking the clindamycin as prescribed as well as hydrocodone for pain. Follow-up with a dentist for reevaluation. Do not drive while taking the Cameron. For further pain management please see your PCP. - My Orders Last 24 Hours: My Active Orders 04/13/17 14:02 Hemoccult [Fecal Occult Blood Collection] [RC] ASDIRECTED - Assessment/Plan Last 24 Hours: My Active Orders 04/13/17 14:02 Hemoccult [Fecal Occult Blood Collection] [RC] ASDIRECTED
[2017-04-13] MEDS ORDERED: HYDROmorphone 1 MG/ML Syringe IM ONE (16:44)
== END 2017-04-13 17:15 | disposition home or self-care (01) ==
LOC: JD.ED 13:08
DX: K92.1 Melena (principal); D64.9 Anemia, unspecified; I10 Essential (primary) hypertension; E11.9 Type 2 diabetes mellitus without complications; F17.210 Nicotine dependence, cigarettes, uncomplicated; Z79.84 Long term (current) use of oral hypoglycemic drugs; Z79.899 Other long term (current) drug therapy
CPT/HCPCS: 36415; 80053; 82270; 85025; 96372; 99285; J1170; 99284

== ENCOUNTER 2017-07-23 23:13 | Emergency (ER) | payer MEDICAID ==
[2017-07-23 23:23] VITALS: BP 178/93
[2017-07-24] MEDS ORDERED: Magnesium Sulfate/Water 2 GM in Premix Bag 1 BAG IV ONE (01:48)
[2017-07-24] MEDS ORDERED: Lactulose Soln 10 GM/15 ML 30 ML UD Cup PO ONE (01:49)
--- NOTE | 2017-07-24 01:50 | EDM.PDOC ---
ED HPI GENERAL MEDICAL PROBLEM - General Chief Complaint: General Stated Complaint: WEAK,CHILLS,LEGS ARE BOTHERING HIM Time Seen by Provider: 07/23/17 23:57 Source of Information: Reports: Patient History Limitations: Reports: No Limitations - History of Present Illness INITIAL COMMENTS - FREE TEXT/NARRATIVE: The patient has a history of hepatitis C with cirrhosis, but is not currently under the care of a Paper Products Inspector or [employer]. He states that his legs have been "crawling", and he has had a headache, both on off for the past 2 weeks. He states that he has been feeling tired since 07/19/2017. He has not found any modifiers for any of his symptoms. No recent nausea, vomiting, constipation, diarrhea, urinary symptoms, chest pain, dyspnea, palpitations, or cough. The patient states that he has been taking ibuprofen, with some relief. The patient's PCP is Rakesh Sevilla, whom the patient has not contacted. When asked why specifically he came in this morning, he stated "I just couldn't take it no more". - Related Data Allergies Allergy/AdvReac Type Severity Reaction Status Date / Time No Known Allergies Allergy Verified 04/13/17 13:19 Home Meds: Home Meds Omeprazole 20 mg PO DAILY 08/23/16 [History] metFORMIN HCl [Glucophage] 1,000 mg PO BID 08/23/16 [History] Nadolol [Naldol] 40 mg PO DAILY #30 04/13/17 [Rx] Past Medical History HEENT History: Reports: Impaired Vision Cardiovascular History: Reports: Hypertension Gastrointestinal History: Reports: Cirrhosis, Colon Polyp, GERD, GI Bleed, Other (See Below) (Esophageal varices) Genitourinary History: Reports: Renal Calculus Endocrine/Metabolic History: Reports: Diabetes, Type II - Infectious Disease History Infectious Disease History: Reports: Hepatitis C (dx'd 2015) - Past Surgical History HEENT Surgical History: Reports: Oral Surgery (Dental extractions) GI Surgical History: Reports: Colonoscopy, EGD, Hernia Repair/Other (umbilical 2012), Other (See Below) (Pyloromyotomy as an . Splenectomy 2001) Musculoskeletal Surgical History: Reports: Carpal Tunnel (bilateral) Social & Family History - Family History Family Medical History: Noncontributory Cardiac: Reports: Hypertension - Tobacco Use Smoking Status *Q: Current Every Day Smoker Years of Tobacco use: 44 Packs/Tins Daily: 0.5 Packs/Tins Daily Comment: Down from 1 ppd - Caffeine Use Caffeine Use: Reports: Coffee, Soda - Alcohol Use Alcohol Use History: No - Recreational Drug Use Recreational Drug Use: Yes Drug Use in Last 12 Months: No Recreational Drug Type: Reports: Cocaine (last 2013), LSD (Acid) (last 2007), Marijuana/Hashish - Living Situation & Occupation Living situation: Reports: Single, Other (friend) 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 ED EXAM, GENERAL - Physical Exam Exam: See Below Exam Limited By: No Limitations General Appearance: Alert, WD/WN, No Apparent Distress Eye Exam: Bilateral Eye: Normal Inspection Ears: Normal External Exam, Hearing Grossly Normal Nose: Normal Inspection, No Blood Throat/Mouth: Normal Inspection, Normal Lips, Normal Voice, No Airway Compromise Head: Atraumatic, Normocephalic Neck: Normal Inspection, Full Range of Motion Respiratory/Chest: No Respiratory Distress, Lungs Clear, Normal Breath Sounds, No Accessory Muscle Use Cardiovascular: Normal Peripheral Pulses, Regular Rate, Rhythm, No Gallop, No JVD, No Murmur, No Rub Peripheral Pulses: 4+: Radial (L), Radial (R) GI/Abdominal: Normal Bowel Sounds, Soft, Non-Tender, No Organomegaly, No Distention, No Abnormal Bruit, No Mass, Other (Well-healed surgical wound left upper quadrant) (Male) Exam: Deferred Rectal (Males) Exam: Deferred Back Exam: Normal Inspection, Full Range of Motion, NT Extremities: Normal Inspection, Normal Range of Motion, Non-Tender, No Pedal Edema, Normal Capillary Refill Neurological: Alert, Oriented, Normal Cognition, No Motor/Sensory Deficits Psychiatric: Normal Affect Skin Exam: Warm, Dry, Intact, Normal Color, No Rash EKG INTERPRETATION EKG Date: 07/24/17 Time: 00:30 Rhythm: NSR Rate (Beats/Min): 68 Lowell: Normal P-Wave: Present QRS: Normal ST-T: Normal QT: Normal Comparison: NA - No Prior EKG Course - Vital Signs Last Recorded V/S: Last Vital Signs Temp 36.2 C 07/23/17 23:22 Pulse 72 03/01/18 23:22 Resp 20 07/23/17 23:22 BP 178/93 H 07/23/17 23:22 Pulse Ox 100 07/23/17 23:22 Orthostatic Blood Pressure [ 164/83 Standing] Orthostatic Blood Pressure [ 165/79 Supine] - Orders/Labs/Meds Orders: Active Orders 24 hr Category Date Time Status EKG Documentation Completion [RC] STAT Care 07/24/17 00:17 Active Orthostatic Vital Signs [RC] STAT Care 07/24/17 00:15 Active Labs: Laboratory Tests 07/24/17 07/24/17 07/24/17 Range/Units 00:25 00:35 00:37 WBC 7.84 (4.23-9.07) K/mm3 RBC 3.64 L (4.63-6.08) M/mm3 Hgb 9.7 L (13.7-17.5) gm/L Hct 28.7 L (40.1-51.0) % MCV 78.8 L (79.0-92.2) fl MCH 26.6 (25.7-32.2) pg MCHC 33.8 (32.2-35.5) g/dl RDW Std Deviation 60.2 H (35.1-43.9) fL Plt Count 139 L (163-337) K/mm3 Neutrophils % (Manual) 34 L (40-60) % Band Neutrophils % 1 (0-10) % Lymphocytes % (Manual) 39 (20-40) % Atypical Lymphs % 0 % Monocytes % (Manual) 20 H (2-10) % Eosinophils % (Manual) 4 (0.8-7.0) % Basophils % (Manual) 2 H (0.2-1.2) Platelet Estimate Adequate Poikilocytosis 1+ slight Anisocytosis 2+ moderate Macrocytosis 1+ slight Target Cells 1+ slight Ovalocytes 1+ slight RBC Morph Comment Not Reportable PT (8.0-13.0) SECONDS INR APTT (22-36) SECONDS Puncture Site Lt radial ABG pH 7.41 (7.35-7.45) ABG pCO2 32.4 L (35.0-45.0) mmHg ABG pO2 82.0 (80.0-100.0) mmHg ABG HCO3 20.1 L (22.0-26.0) meq/L ABG O2 Saturation 97.0 (96.0-97.0) % ABG Base Excess -3.3 L (-2-2.0) Carlos Eduardo Test Positive A-a Gradient 12 mmHg O2 Delivery Device Room air FiO2 21.00 (21.00-100.00) % Sodium (136-145) mEq/L Potassium (3.5-5.1) mEq/L Chloride (98-107) mEq/L Carbon Dioxide (21-32) mEq/L Anion Gap (5-15) BUN (7-18) mg/dL Creatinine (0.7-1.3) mg/dL Est Cr Clr Drug Dosing mL/min Estimated GFR (MDRD) (>60) mL/min BUN/Creatinine Ratio (14-18) Glucose (74-106) mg/dL Lactic Acid (0.4-2.0) mmol/L Calcium (8.5-10.1) mg/dL Magnesium (1.8-2.4) mg/dl Total Bilirubin (0.2-1.0) mg/dL GGT (15-85) U/L AST (15-37) U/L ALT (16-63) U/L Alkaline Phosphatase (46-116) U/L Ammonia (11-32) umol/L Total Protein (6.4-8.2) g/dl Albumin (3.4-5.0) g/dl Globulin gm/dL Albumin/Globulin Ratio (1-2) TSH 3rd Generation (0.358-3.74) uIU/mL Urine Color Dark yellow (Yellow) Urine Appearance Slt cloudy H (Clear) Urine pH 6.0 (5.0-8.0) Ur Specific Blackstone > or = 1.030 (1.005-1.030) Urine Protein 1+ H (Negative) Urine Glucose (UA) Negative (Negative) Urine Ketones Trace H (Negative) Urine Occult Blood 1+ H (Negative) Urine Nitrite Negative (Negative) Urine Bilirubin 1+ H (Negative) Urine Urobilinogen 4.0 H (0.2-1.0) Ur Leukocyte Esterase Negative (Negative) Urine RBC 5-10 H (0-5) /hpf Urine WBC 0-5 (0-5) /hpf Ur Epithelial Cells 0-5 (0-5) /hpf Urine Bacteria Few (FEW) /hpf Hyaline Casts 5-10 H (0-5) /lpf Urine Mucus Moderate H (FEW) /hpf Ketones (0.0-0.3) mM 07/24/17 07/24/17 07/24/17 Range/Units 00:37 00:37 00:37 WBC (4.23-9.07) K/mm3 RBC (4.63-6.08) M/mm3 Hgb (13.7-17.5) gm/L Hct (40.1-51.0) % MCV (79.0-92.2) fl MCH (25.7-32.2) pg MCHC (32.2-35.5) g/dl RDW Std Deviation (35.1-43.9) fL Plt Count (163-337) K/mm3 Neutrophils % (Manual) (40-60) % Band Neutrophils % (0-10) % Lymphocytes % (Manual) (20-40) % Atypical Lymphs % % Monocytes % (Manual) (2-10) % Eosinophils % (Manual) (0.8-7.0) % Basophils % (Manual) (0.2-1.2) Platelet Estimate Poikilocytosis Anisocytosis Macrocytosis Target Cells Ovalocytes RBC Morph Comment PT 12.9 (8.0-13.0) SECONDS INR 1.20 APTT 32 (22-36) SECONDS Puncture Site ABG pH (7.35-7.45) ABG pCO2 (35.0-45.0) mmHg ABG pO2 (80.0-100.0) mmHg ABG HCO3 (22.0-26.0) meq/L ABG O2 Saturation (96.0-97.0) % ABG Base Excess (-2-2.0) Carlos Eduardo Test A-a Gradient mmHg O2 Delivery Device FiO2 (21.00-100.00) % Sodium 141 (136-145) mEq/L Potassium 4.1 (3.5-5.1) mEq/L Chloride 110 H (98-107) mEq/L Carbon Dioxide 22 (21-32) mEq/L Anion Gap 13.1 (5-15) BUN 15 (7-18) mg/dL Creatinine 1.1 (0.7-1.3) mg/dL Est Cr Clr Drug Dosing 85.11 mL/min Estimated GFR (MDRD) > 60 (>60) mL/min BUN/Creatinine Ratio 13.6 L (14-18) Glucose 172 H (74-106) mg/dL Lactic Acid 1.7 (0.4-2.0) mmol/L Calcium 9.2 (8.5-10.1) mg/dL Magnesium 1.5 L (1.8-2.4) mg/dl Total Bilirubin 3.7 H (0.2-1.0) mg/dL GGT 130 H (15-85) U/L AST 74 H (15-37) U/L ALT 44 (16-63) U/L Alkaline Phosphatase 156 H (46-116) U/L Ammonia (11-32) umol/L Total Protein 7.0 (6.4-8.2) g/dl Albumin 2.3 L (3.4-5.0) g/dl Globulin 4.7 gm/dL Albumin/Globulin Ratio 0.5 L (1-2) TSH 3rd Generation 2.608 (0.358-3.74) uIU/mL Urine Color (Yellow) Urine Appearance (Clear) Urine pH (5.0-8.0) Ur Specific Blackstone (1.005-1.030) Urine Protein (Negative) Urine Glucose (UA) (Negative) Urine Ketones (Negative) Urine Occult Blood (Negative) Urine Nitrite (Negative) Urine Bilirubin (Negative) Urine Urobilinogen (0.2-1.0) Ur Leukocyte Esterase (Negative) Urine RBC (0-5) /hpf Urine WBC (0-5) /hpf Ur Epithelial Cells (0-5) /hpf Urine Bacteria (FEW) /hpf Hyaline Casts (0-5) /lpf Urine Mucus (FEW) /hpf Ketones (0.0-0.3) mM 07/24/17 07/24/17 Range/Units 00:37 00:37 WBC (4.23-9.07) K/mm3 RBC (4.63-6.08) M/mm3 Hgb (13.7-17.5) gm/L Hct (40.1-51.0) % MCV (79.0-92.2) fl MCH (25.7-32.2) pg MCHC (32.2-35.5) g/dl RDW Std Deviation (35.1-43.9) fL Plt Count (163-337) K/mm3 Neutrophils % (Manual) (40-60) % Band Neutrophils % (0-10) % Lymphocytes % (Manual) (20-40) % Atypical Lymphs % % Monocytes % (Manual) (2-10) % Eosinophils % (Manual) (0.8-7.0) % Basophils % (Manual) (0.2-1.2) Platelet Estimate Poikilocytosis Anisocytosis Macrocytosis Target Cells Ovalocytes RBC Morph Comment PT (8.0-13.0) SECONDS INR APTT (22-36) SECONDS Puncture Site ABG pH (7.35-7.45) ABG pCO2 (35.0-45.0) mmHg ABG pO2 (80.0-100.0) mmHg ABG HCO3 (22.0-26.0) meq/L ABG O2 Saturation (96.0-97.0) % ABG Base Excess (-2-2.0) Carlos Eduardo Test A-a Gradient mmHg O2 Delivery Device FiO2 (21.00-100.00) % Sodium (136-145) mEq/L Potassium (3.5-5.1) mEq/L Chloride (98-107) mEq/L Carbon Dioxide (21-32) mEq/L Anion Gap (5-15) BUN (7-18) mg/dL Creatinine (0.7-1.3) mg/dL Est Cr Clr Drug Dosing mL/min Estimated GFR (MDRD) (>60) mL/min BUN/Creatinine Ratio (14-18) Glucose (74-106) mg/dL Lactic Acid (0.4-2.0) mmol/L Calcium (8.5-10.1) mg/dL Magnesium (1.8-2.4) mg/dl Total Bilirubin (0.2-1.0) mg/dL GGT (15-85) U/L AST (15-37) U/L ALT (16-63) U/L Alkaline Phosphatase (46-116) U/L Ammonia 206 H (11-32) umol/L Total Protein (6.4-8.2) g/dl Albumin (3.4-5.0) g/dl Globulin gm/dL Albumin/Globulin Ratio (1-2) TSH 3rd Generation (0.358-3.74) uIU/mL Urine Color (Yellow) Urine Appearance (Clear) Urine pH (5.0-8.0) Ur Specific Blackstone (1.005-1.030) Urine Protein (Negative) Urine Glucose (UA) (Negative) Urine Ketones (Negative) Urine Occult Blood (Negative) Urine Nitrite (Negative) Urine Bilirubin (Negative) Urine Urobilinogen (0.2-1.0) Ur Leukocyte Esterase (Negative) Urine RBC (0-5) /hpf Urine WBC (0-5) /hpf Ur Epithelial Cells (0-5) /hpf Urine Bacteria (FEW) /hpf Hyaline Casts (0-5) /lpf Urine Mucus (FEW) /hpf Ketones 0.24 (0.0-0.3) mM Meds: Medications Discontinued Medications Generic Name Dose Route Start Last Admin Trade Name Freq PRN Reason Stop Dose Admin Magnesium Sulfate 2 gm/ Premix 50 mls @ 50 mls/hr 07/24/17 01:48 07/24/17 02: 17 IV 07/24/17 02:47 50 mls/hr ONETIME ONE Administration Lactulose 20 gm 07/24/17 01:49 07/24/17 02:18 Cephulac PO 07/24/17 01:50 20 gm ONETIME ONE Administration - Re-Assessments/Exams Free Text/Narrative Re-Assessment/Exam: 07/24/17 01:47 The patient is mildly anemic, with mild thrombocytopenia, both likely due to his cirrhosis. His blood glucose is mildly elevated 172. Magnesium is depressed at 1.5. His ammonia is elevated at 206. His urinalysis shows 4+ urobilinogen, likely due to serum total bilirubin of 3.7. I have ordered 2 g magnesium rider. I have ordered 20 g oral lactulose for the elevated ammonia level, although it should be noted that the patient is not confused or encephalopathic. The patient is not orthostatic. 07/24/17 03:17 The magnesium rider has finished infusing. Test results discussed with the patient. While there are lab abnormalities, not so severe that require hospitalization. I will discharge the patient home with a referral to a Paper Products Inspector in [place]. Departure - Departure Time of Disposition: 03:18 Disposition: Home, Self-Care 01 Condition: Good Clinical Impression: Cirrhosis, Hypomagnesemia - Discharge Information Referrals: Rakesh Sevilla, [facility] [Primary Care Provider] - Timothy Crawford MD [Ordering Only Provider] - Forms: ED Department Discharge Additional Instructions: You were seen in the emergency room for feeling tired, the sensation of your legs crawling, and a headache. Workup in the ER included blood work, an arterial blood gas, a urinalysis, an ECG, and positional blood pressure checks. Your workup found that you have mild anemia, mildly low platelets, elevated liver enzymes, including an elevated total bilirubin, a blood sugar of 172, low magnesium, and high ammonia level. You were given oral lactulose and IV magnesium in the ER. We recommend that you follow-up with the Paper Products Inspector Dr. Timothy Crawford at the next available appointment. If any other problems, please do not hesitate to return to the ER. - My Orders Last 24 Hours: My Active Orders 07/24/17 00:15 Orthostatic Vital Signs [RC] STAT 07/24/17 00:17 EKG Documentation Completion [RC] STAT - Assessment/Plan Last 24 Hours: My Active Orders 07/24/17 00:15 Orthostatic Vital Signs [RC] STAT 07/24/17 00:17 EKG Documentation Completion [RC] STAT
== END 2017-07-24 03:25 | disposition home or self-care (01) ==
LOC: SUPCPDRO 23:13 → JD.ED 23:13
DX: K74.60 Unspecified cirrhosis of liver (principal); E83.42 Hypomagnesemia; D64.9 Anemia, unspecified; D69.6 Thrombocytopenia, unspecified; I10 Essential (primary) hypertension; K21.9 Gastro-esophageal reflux disease without esophagitis; E11.9 Type 2 diabetes mellitus without complications; F17.210 Nicotine dependence, cigarettes, uncomplicated; Z86.19 Personal history of other infectious and parasitic diseases; Z79.84 Long term (current) use of oral hypoglycemic drugs; Z79.899 Other long term (current) drug therapy
CPT/HCPCS: 36415; 36600; 80053; 81001; 82009; 82140; 82803; 82977; 83605; 83735; 84443; 85025; 85610; 85730; 93005; 96365; 99285; A9270; 99284; J3475

== ENCOUNTER 2017-08-05 14:04 | Emergency (ER) | payer MEDICAID ==
[2017-08-05 14:18] VITALS: BP 175/83
[2017-08-05] MEDS ORDERED: Sodium Chloride 0.9% 1,000 ML IV ONE (14:46)
[2017-08-05] MEDS ORDERED: Sodium Chloride 0.9% 10 ML Syringe FLUSH PRN (14:47)
--- NOTE | 2017-08-05 14:48 | EDM.PDOC ---
ED HPI GENERAL MEDICAL PROBLEM - General Chief Complaint: Syncope Stated Complaint: WEAKNESS Time Seen by Provider: 08/05/17 14:22 Source of Information: Reports: Patient History Limitations: Reports: No Limitations - History of Present Illness INITIAL COMMENTS - FREE TEXT/NARRATIVE: 57 y/o M with hx hep C/cirrhosis/ESLD with prior episodes of GI bleed, ascites, and variceal bleeding presents with altered mental status from clinic. States he feels forgetful and "foggy" and is having trouble with his daily tasks. PCP was concerned so sent him here for eval. Denies fall/trauma. No HAMPTON. No specific weakness, vision change, or difficulty speaking. States compliant with meds but didn't take anti-hypertensives for past few days due to not feeling well. No fever. No cough/CP/SOB. No abd pain/vomiting/diarrhea. No ETOH or drug intake. - Related Data Allergies Allergy/AdvReac Type Severity Reaction Status Date / Time No Known Allergies Allergy Verified 08/05/17 14:18 Home Meds: Home Meds Omeprazole 20 mg PO DAILY 08/23/16 [History] metFORMIN HCl [Glucophage] 1,000 mg PO BID 08/23/16 [History] Nadolol [Naldol] 40 mg PO DAILY #30 04/13/17 [Rx] Lactulose [Cephulac] 20 gm PO BID #60 cup 08/05/17 [Rx] Lisinopril 10 mg PO DAILY 08/05/17 [History] Past Medical History HEENT History: Reports: Impaired Vision Cardiovascular History: Reports: Hypertension Gastrointestinal History: Reports: Cirrhosis, Colon Polyp, GERD, GI Bleed Other Gastrointestinal History: esophageal varices Genitourinary History: Reports: Renal Calculus Endocrine/Metabolic History: Reports: Diabetes, Type II - Infectious Disease History Infectious Disease History: Reports: Hepatitis C - Past Surgical History HEENT Surgical History: Reports: Oral Surgery GI Surgical History: Reports: Colonoscopy, EGD, Hernia Repair/Other, Stefania Fundoplication, Other (See Below) Other GI Surgeries/Procedures: splenectomy Musculoskeletal Surgical History: Reports: Carpal Tunnel Social & Family History - Family History Family Medical History: Noncontributory Cardiac: Reports: Hypertension - Tobacco Use Smoking Status *Q: Current Every Day Smoker Years of Tobacco use: 20 Packs/Tins Daily: 0.4 - Caffeine Use Caffeine Use: Reports: None - Recreational Drug Use Recreational Drug Use: No Drug Use in Last 12 Months: No Recreational Drug Type: Reports: Cocaine (last 2013), LSD (Acid) (last 2007), Marijuana/Hashish - Living Situation & Occupation Living situation: Reports: Single, Other (friend) 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 Denies: Headache Psychiatric: Reports: No Symptoms ED EXAM, DIZZINESS - Physical Exam Exam: See Below Exam Limited By: No Limitations General Appearance: Alert, WD/WN, No Apparent Distress Eye Exam: Bilateral Eye: Normal Inspection, Other (mild jaundice) Ears: Normal External Exam Nose: Normal Inspection Throat/Mouth: Normal Inspection, Normal Oropharynx, Normal Voice, No Airway Compromise Head Exam: Atraumatic, Normocephalic Neck: Normal Inspection, Supple, Non-Tender, Full Range of Motion Respiratory/Chest: No Respiratory Distress, Lungs Clear, Normal Breath Sounds, Chest Non-Tender Cardiovascular: Normal Peripheral Pulses, Regular Rate, Rhythm, No Murmur GI/Abdominal: Normal Bowel Sounds, Soft, Non-Tender, No Distention. No: Rebound Neurological: Alert, Normal Mood/Affect, Normal Dorsiflexion, CN II-XII Intact, Normal Plantar Flexion, No Motor/Sensory Deficits Back Exam: Normal Inspection Extremities: Normal Inspection Psychiatric: Normal Affect, Normal Mood Skin Exam: Warm, Dry, Intact, Normal Color, No Rash Course - Vital Signs Last Recorded V/S: Last Vital Signs Temp 36.1 C 08/05/17 14:13 Pulse 75 08/05/17 14:13 Resp 16 08/05/17 14:13 BP 175/83 H 08/05/17 14:13 Pulse Ox 99 08/05/17 14:13 Orthostatic Blood Pressure [ 148/83 Standing] Orthostatic Blood Pressure [ 174/89 Sitting] Orthostatic Blood Pressure [ 170/84 Supine] - Orders/Labs/Meds Orders: Active Orders 24 hr Category Date Time Status EKG 12 Lead [EKG Documentation Completion] [RC] STAT Care 08/05/17 14:46 Active Peripheral IV Care [RC] . DIRECTED Care 08/05/17 14:47 Active Chest 1V Frontal [CR] Stat Exams 08/05/17 14:46 Taken Head wo Cont [CT] Stat Exams 08/05/17 14:47 Taken Sodium Chloride 0.9% [Saline Flush] Med 08/05/17 14:47 Active 10 ml FLUSH ASDIRECTED PRN Peripheral IV Insertion Adult [OM.PC] Routine Oth 08/05/17 14:46 Ordered Medication Orders Sodium Chloride (Saline Flush) 10 ml FLUSH ASDIRECTED PRN PRN Reason: Keep Vein Open Last Admin: 08/05/17 15:11 Dose: 10 ml Labs: Laboratory Tests 08/05/17 08/05/17 08/05/17 Range/Units 15:00 15:00 15:00 WBC 6.55 (4.23-9.07) K/mm3 RBC 3.78 L (4.63-6.08) M/mm3 Hgb 10.2 L (13.7-17.5) gm/L Hct 30.0 L (40.1-51.0) % MCV 79.4 (79.0-92.2) fl MCH 27.0 (25.7-32.2) pg MCHC 34.0 (32.2-35.5) g/dl RDW Std Deviation 60.8 H (35.1-43.9) fL Plt Count 168 (163-337) K/mm3 MPV 12.4 H (9.4-12.3) fl Neut % (Auto) 34.5 (34.0-67.9) % Lymph % (Auto) 42.1 (21.8-53.1) % [place] % (Auto) 18.3 H (5.3-12.2) % Eos % (Auto) 4.0 (0.8-7.0) Baso % (Auto) 0.9 (0.1-1.2) % Neut # (Auto) 2.26 (1.78-5.38) K/mm3 Lymph # (Auto) 2.76 (1.32-3.57) K/mm3 [place] # (Auto) 1.20 H (0.30-0.82) K/mm3 Eos # (Auto) 0.26 (0.04-0.54) K/mm3 Baso # (Auto) 0.06 (0.01-0.08) K/mm3 Manual Slide Review Abnormal smear Sodium 141 (136-145) mEq/L Potassium 3.9 (3.5-5.1) mEq/L Chloride 109 H (98-107) mEq/L Carbon Dioxide 21 (21-32) mEq/L Anion Gap 14.9 (5-15) BUN 11 (7-18) mg/dL Creatinine 0.9 (0.7-1.3) mg/dL Est Cr Clr Drug Dosing 104.02 mL/min Estimated GFR (MDRD) > 60 (>60) mL/min BUN/Creatinine Ratio 12.2 L (14-18) Glucose 151 H (74-106) mg/dL POC Glucose (70-105) mg/dL Calcium 8.8 (8.5-10.1) mg/dL Total Bilirubin 3.2 H (0.2-1.0) mg/dL AST 77 H (15-37) U/L ALT 55 (16-63) U/L Alkaline Phosphatase 143 H (46-116) U/L Ammonia 85 H (11-32) umol/L Troponin I 0.024 (0.00-0.056) ng/mL Total Protein 7.2 (6.4-8.2) g/dl Albumin 2.5 L (3.4-5.0) g/dl Globulin 4.7 gm/dL Albumin/Globulin Ratio 0.5 L (1-2) Lipase 352 (73-393) U/L Free T4 1.20 (0.76-1.46) ng/dL TSH 3rd Generation 1.915 (0.358-3.74) uIU/mL Urine Color (Yellow) Urine Appearance (Clear) Urine pH (5.0-8.0) Ur Specific [place] (1.005-1.030) Urine Protein (Negative) Urine Glucose (UA) (Negative) Urine Ketones (Negative) Urine Occult Blood (Negative) Urine Nitrite (Negative) Urine Bilirubin (Negative) Urine Urobilinogen (0.2-1.0) Ur Leukocyte Esterase (Negative) Urine RBC (0-5) /hpf Urine WBC (0-5) /hpf Ur Epithelial Cells (0-5) /hpf Urine Bacteria (FEW) /hpf Urine Mucus (FEW) /hpf Urine Opiates Screen (NEGATIVE) Ur Buprenorphine Scrn (NEGATIVE) Ur Oxycodone Screen (NEGATIVE) Urine Methadone Screen (NEGATIVE) Ur Propoxyphene Screen (NEGATIVE) Ur Barbiturates Screen (NEGATIVE) Ur Tricyclics Screen (NEGATIVE) Ur Phencyclidine Scrn (NEGATIVE) Ur Amphetamine Screen (NEGATIVE) U Methamphetamines Scrn (NEGATIVE) U Benzodiazepines Scrn (NEGATIVE) U Cocaine Metab Screen (NEGATIVE) U Marijuana (THC) Screen (NEGATIVE) Ethyl Alcohol 0.00 (0.00) gm% 08/05/17 08/05/17 08/05/17 Range/Units 15:00 15:23 15:23 WBC (4.23-9.07) K/mm3 RBC (4.63-6.08) M/mm3 Hgb (13.7-17.5) gm/L Hct (40.1-51.0) % MCV (79.0-92.2) fl MCH (25.7-32.2) pg MCHC (32.2-35.5) g/dl RDW Std Deviation (35.1-43.9) fL Plt Count (163-337) K/mm3 MPV (9.4-12.3) fl Neut % (Auto) (34.0-67.9) % Lymph % (Auto) (21.8-53.1) % [place] % (Auto) (5.3-12.2) % Eos % (Auto) (0.8-7.0) Baso % (Auto) (0.1-1.2) % Neut # (Auto) (1.78-5.38) K/mm3 Lymph # (Auto) (1.32-3.57) K/mm3 [place] # (Auto) (0.30-0.82) K/mm3 Eos # (Auto) (0.04-0.54) K/mm3 Baso # (Auto) (0.01-0.08) K/mm3 Manual Slide Review Sodium (136-145) mEq/L Potassium (3.5-5.1) mEq/L Chloride (98-107) mEq/L Carbon Dioxide (21-32) mEq/L Anion Gap (5-15) BUN (7-18) mg/dL Creatinine (0.7-1.3) mg/dL Est Cr Clr Drug Dosing mL/min Estimated GFR (MDRD) (>60) mL/min BUN/Creatinine Ratio (14-18) Glucose (74-106) mg/dL POC Glucose 122 H (70-105) mg/dL Calcium (8.5-10.1) mg/dL Total Bilirubin (0.2-1.0) mg/dL AST (15-37) U/L ALT (16-63) U/L Alkaline Phosphatase (46-116) U/L Ammonia (11-32) umol/L Troponin I (0.00-0.056) ng/mL Total Protein (6.4-8.2) g/dl Albumin (3.4-5.0) g/dl Globulin gm/dL Albumin/Globulin Ratio (1-2) Lipase (73-393) U/L Free T4 (0.76-1.46) ng/dL TSH 3rd Generation (0.358-3.74) uIU/mL Urine Color Yellow (Yellow) Urine Appearance Clear (Clear) Urine pH 7.0 (5.0-8.0) Ur Specific [place] 1.020 (1.005-1.030) Urine Protein Trace H (Negative) Urine Glucose (UA) Trace H (Negative) Urine Ketones Negative (Negative) Urine Occult Blood 1+ H (Negative) Urine Nitrite Negative (Negative) Urine Bilirubin Negative (Negative) Urine Urobilinogen 2.0 H (0.2-1.0) Ur Leukocyte Esterase Negative (Negative) Urine RBC 5-10 H (0-5) /hpf Urine WBC 0-5 (0-5) /hpf Ur Epithelial Cells 0-5 (0-5) /hpf Urine Bacteria Few (FEW) /hpf Urine Mucus Few (FEW) /hpf Urine Opiates Screen Negative (NEGATIVE) Ur Buprenorphine Scrn Negative (NEGATIVE) Ur Oxycodone Screen Negative (NEGATIVE) Urine Methadone Screen Negative (NEGATIVE) Ur Propoxyphene Screen Negative (NEGATIVE) Ur Barbiturates Screen Negative (NEGATIVE) Ur Tricyclics Screen Negative (NEGATIVE) Ur Phencyclidine Scrn Negative (NEGATIVE) Ur Amphetamine Screen Negative (NEGATIVE) U Methamphetamines Scrn Negative (NEGATIVE) U Benzodiazepines Scrn Negative (NEGATIVE) U Cocaine Metab Screen Negative (NEGATIVE) U Marijuana (THC) Screen Negative (NEGATIVE) Ethyl Alcohol (0.00) gm% Meds: Medications Generic Name Dose Route Start Last Admin Trade Name Freq PRN Reason Stop Dose Admin Sodium Chloride 10 ml 08/05/17 14:47 08/05/17 15:11 Saline Flush FLUSH 10 ml ASDIRECTED PRN Administration Keep Vein Open Discontinued Medications Generic Name Dose Route Start Last Admin Trade Name Freq PRN Reason Stop Dose Admin Sodium Chloride 1,000 mls @ 1,000 mls/hr 08/05/17 14:46 08/05/17 15:11 Normal Saline IV 08/05/17 15:45 1,000 mls/hr ONETIME ONE Administration Lactulose 20 gm 08/05/17 15:43 08/05/17 15:54 Cephulac PO 08/05/17 15:44 20 gm ONETIME ONE Administration - Re-Assessments/Exams Free Text/Narrative Re-Assessment/Exam: 08/05/17 16:03 Mild jaundice, otherwise well appearing. Vitals with mild HTN, otherwise uremarkable. Mildly elevated bilirubin and ammonia elevated at 80. HCT stable compared to prior. Labs otherwise unremarkable. CT head neg. Patient is alert, conversive, and doesn't appear significantly confused. His complaint of feeling "foggy" may be due to hepatic encephalopathy. Lactulose given. He appears to be safe to go home. He is in the process of arranging f/u with GI clinic - thinks he has an appointment but isn't sure of date/time. Will rx lactulose, encourage him to also f/u with PCP PORTER, discussed return precautions. Departure - Departure Time of Disposition: 16:09 Disposition: Home, Self-Care 01 Clinical Impression: Hepatic encephalopathy, Confusion - Discharge Information Prescriptions: Lactulose [Cephulac] 20 gm PO BID #60 cup Instructions: Hepatic Encephalopathy, Confusion Referrals: Rakesh Sevilla PA-C [Primary Care Provider] - Forms: ED Department Discharge Additional Instructions: 1. Follow up with Rakesh Sevilla as soon as possible. Call [phone] to schedule. 2. Take lactulose as prescribed. 3. Also follow up with gastroenterology as planned. 4. Return to the ED if you have worsening confusion or any new concerning symptoms, such as severe headache, weakness chest pain, difficulty breathing, abdominal pain, or other concerning symptoms. - My Orders Last 24 Hours: My Active Orders 08/05/17 14:46 EKG 12 Lead [EKG Documentation Completion] [RC] STAT Chest 1V Frontal [CR] Stat Peripheral IV Insertion Adult [OM.PC] Routine 08/05/17 14:47 Peripheral IV Care [RC] . DIRECTED Head wo Cont [CT] Stat Sodium Chloride 0.9% [Saline Flush] 10 ml FLUSH ASDIRECTED PRN - Assessment/Plan Last 24 Hours: My Active Orders 08/05/17 14:46 EKG 12 Lead [EKG Documentation Completion] [RC] STAT Chest 1V Frontal [CR] Stat Peripheral IV Insertion Adult [OM.PC] Routine 08/05/17 14:47 Peripheral IV Care [RC] . DIRECTED Head wo Cont [CT] Stat Sodium Chloride 0.9% [Saline Flush] 10 ml FLUSH ASDIRECTED PRN
[2017-08-05] MEDS ORDERED: Lactulose Soln 10 GM/15 ML 30 ML UD Cup PO ONE (15:43)
--- NOTE | 2017-08-05 16:48 | CT ---
Head CT Technique: Multiple axial sections through the brain were obtained. Intravenous contrast was not utilized. Comparison: No previous intracranial imaging. Findings: Ventricles along the basal cisterns and sulci over the convexities are mildly prominent. Mild diminished density noted within the periventricular white matter compatible with small vessel ischemic demyelination change. No other abnormal parenchymal densities are seen. No evidence of intracranial hemorrhage. No midline shift or mass effect is seen. Bone window settings were reviewed which show the visualized sinuses to appear clear. No acute calvarial abnormality is seen. Impression: 1. Mild senescent change. 2. No acute intracranial abnormality is identified on noncontrast head CT study. Diagnostic code #2 Agree with preliminary report issued by [facility] ([facility] preliminary report dictated on 08/05/17, 4:26 PM Central Time)
--- NOTE | 2017-08-06 09:12 | CR ---
Chest: Frontal view of the chest was obtained. Comparison: No prior chest x-ray. Heart size and mediastinum are normal. Lungs are clear. Bony structures are grossly intact. Impression: 1. Nothing acute is identified on frontal chest x-ray. Diagnostic code #1
== END 2017-08-05 16:20 | disposition home or self-care (01) ==
LOC: JD.ED 14:04
DX: K72.90 Hepatic failure, unspecified without coma (principal); R41.0 Disorientation, unspecified; I10 Essential (primary) hypertension; K21.9 Gastro-esophageal reflux disease without esophagitis; E11.9 Type 2 diabetes mellitus without complications; Z79.84 Long term (current) use of oral hypoglycemic drugs; Z79.899 Other long term (current) drug therapy
CPT/HCPCS: 36415; 70450; 71045; 80053; 80306; 81001; 82140; 82962; 83690; 84439; 84443; 84484; 85025; 93005; 96360; 99284; A9270; G0480; J7040; J7050

== ENCOUNTER 2017-08-14 12:03 | Emergency (ER) | payer MEDICAID ==
[2017-08-14 12:16] VITALS: BP 167/101
[2017-08-14] MEDS ORDERED: Sodium Chloride 0.9% 1,000 ML IV ONE (13:33)
[2017-08-14] MEDS ORDERED: Sodium Chloride 0.9% 10 ML Syringe FLUSH PRN (13:37)
--- NOTE | 2017-08-14 13:58 | EDM.PDOC ---
ED HPI GENERAL MEDICAL PROBLEM - General Chief Complaint: Cardiovascular Problem Stated Complaint: WEAK AND ANEMIC SENT BY [facility] Time Seen by Provider: 08/14/17 12:40 Source of Information: Reports: Patient History Limitations: Reports: No Limitations - History of Present Illness INITIAL COMMENTS - FREE TEXT/NARRATIVE: 57 year old male presents for evaluation and treatment of weakness and fatigue. This has been going on for several weeks. This is the patient's third visit to the ER for similar problems. He was seen on July 23 and August 05 for similar complaints. Please see these records for complete details. Patient complains today that he is expressing increased weakness, nausea and fatigue. He states last night he was sleeping on the couch he woke up on the floor. He attributes this to his weakness. He denies any headaches, vomiting, diarrhea, chest pain, shortness of breath, melena or hematochezia. He states that he does have a productive cough that has been present for the last several weeks. Patient has a history of hepatitis C. He currently has an appointment to see PRINCE Sequeira in [facility] beginning of August. He also has a history of esophageal varices, ascites and GI bleed. He reports he has received blood transfusions in the past. He did have a paracentesis several years ago one time. He denies any drug or alcohol use. The patient was previously placed on lactulose for hepatic encephalopathy. He is not currently on this now. PCP Ana Cristina is Rakesh Sevilla. - Related Data Allergies Allergy/AdvReac Type Severity Reaction Status Date / Time No Known Allergies Allergy Verified 08/05/17 14:18 Home Meds: Home Meds Omeprazole 20 mg PO DAILY 08/23/16 [History] metFORMIN HCl [Glucophage] 1,000 mg PO BID 08/23/16 [History] Nadolol [Naldol] 40 mg PO DAILY #30 04/13/17 [Rx] Lisinopril 10 mg PO DAILY 08/05/17 [History] Lactulose [Cephulac] 20 gm PO BID #1800 ml 08/14/17 [Rx] Past Medical History HEENT History: Reports: Impaired Vision Cardiovascular History: Reports: Hypertension Gastrointestinal History: Reports: Cirrhosis, Colon Polyp, GERD, GI Bleed Other Gastrointestinal History: esophageal varices Genitourinary History: Reports: Renal Calculus Endocrine/Metabolic History: Reports: Diabetes, Type II Hematologic History: Reports: Anemia - Infectious Disease History Infectious Disease History: Reports: Hepatitis C - Past Surgical History HEENT Surgical History: Reports: Oral Surgery GI Surgical History: Reports: Colonoscopy, EGD, Hernia Repair/Other, Stefania Fundoplication, Other (See Below) Other GI Surgeries/Procedures: splenectomy Musculoskeletal Surgical History: Reports: Carpal Tunnel Social & Family History - Family History Family Medical History: Noncontributory Cardiac: Reports: Hypertension - Tobacco Use Smoking Status *Q: Current Every Day Smoker Years of Tobacco use: 10 Packs/Tins Daily: 0.1 Used Tobacco, but Quit: No - Caffeine Use Caffeine Use: Reports: Coffee - Recreational Drug Use Recreational Drug Use: No Drug Use in Last 12 Months: No Recreational Drug Type: Reports: Cocaine (last 2013), LSD (Acid) (last 2007), Marijuana/Hashish - Living Situation & Occupation Living situation: Reports: Single, Other (friend) 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 Denies: Shortness of Breath Cardiovascular: Denies: Chest Pain GI/Abdominal: Reports: Nausea. Denies: Abdominal Pain, Diarrhea, Hematochezia, Melena, Vomiting Skin: Reports: Pruritis Neurological: Denies: Headache ED EXAM, GENERAL - Physical Exam Exam: See Below Exam Limited By: No Limitations General Appearance: Alert, WD/WN, No Apparent Distress, Thin Eye Exam: Bilateral Eye: Normal Inspection, Other (icterus) Ears: Normal External Exam Throat/Mouth: Normal Inspection, Normal Voice, No Airway Compromise Respiratory/Chest: No Respiratory Distress, Lungs Clear, Normal Breath Sounds Cardiovascular: Normal Peripheral Pulses, Regular Rate, Rhythm, No Murmur GI/Abdominal: Normal Bowel Sounds, Soft, Non-Tender Neurological: Alert, Oriented, Normal Cognition Psychiatric: Normal Affect, Normal Mood Skin Exam: Warm, Dry, Jaundice EKG INTERPRETATION EKG Date: 08/14/17 Time: 13:40 Rhythm: NSR Rate (Beats/Min): 68 [place]: Normal P-Wave: Present QRS: Normal ST-T: Normal QT: Normal EKG Interpretation Comments: NSR at 68 bpm. No acute changes. Reviewed by myself and Dr. Minor Course - Vital Signs Last Recorded V/S: Last Vital Signs Temp 36.5 C 08/14/17 12:13 Pulse 75 08/14/17 12:13 Resp 17 08/14/17 12:13 BP 167/101 H 08/14/17 12:13 Pulse Ox 100 08/14/17 12:13 Orthostatic Blood Pressure [ 160/104 Standing] Orthostatic Blood Pressure [ 156/85 Supine] - Orders/Labs/Meds Orders: Active Orders 24 hr Category Date Time Status Cardiac Monitoring [RC] . DIRECTED Care 08/14/17 13:33 Active EKG Documentation Completion [RC] ASDIRECTED Care 08/14/17 13:33 Active Orthostatic Vital Signs [RC] ASDIRECTED Care 08/14/17 13:33 Active Peripheral IV Care [RC] . DIRECTED Care 08/14/17 13:37 Active Peripheral IV Insertion Adult [OM.PC] Routine Oth 08/14/17 13:37 Ordered EKG 12 Lead [EK] Stat Ther 08/14/17 13:33 Ordered Labs: Laboratory Tests 08/14/17 08/14/17 08/14/17 Range/Units 12:30 12:30 13:50 WBC 5.18 (4.23-9.07) K/mm3 RBC 3.88 L (4.63-6.08) M/mm3 Hgb 10.6 L (13.7-17.5) gm/L Hct 31.2 L (40.1-51.0) % MCV 80.4 (79.0-92.2) fl MCH 27.3 (25.7-32.2) pg MCHC 34.0 (32.2-35.5) g/dl RDW Std Deviation 63.4 H (35.1-43.9) fL Plt Count 148 L (163-337) K/mm3 Neutrophils % (Manual) 35 L (40-60) % Band Neutrophils % 2 (0-10) % Lymphocytes % (Manual) 49 H (20-40) % Atypical Lymphs % 0 % Monocytes % (Manual) 12 H (2-10) % Eosinophils % (Manual) 0 L (0.8-7.0) % Basophils % (Manual) 1 (0.2-1.2) Myelocytes % 1 Platelet Estimate Adequate Polychromasia 1+ slight Anisocytosis 1+ slight Target Cells Few RBC Morph Comment Not Reportable PT 12.6 (8.0-13.0) SECONDS INR 1.18 APTT 30 (22-36) SECONDS Sodium (136-145) mEq/L Potassium (3.5-5.1) mEq/L Chloride (98-107) mEq/L Carbon Dioxide (21-32) mEq/L Anion Gap (5-15) BUN (7-18) mg/dL Creatinine (0.7-1.3) mg/dL Est Cr Clr Drug Dosing mL/min Estimated GFR (MDRD) (>60) mL/min BUN/Creatinine Ratio (14-18) Glucose (74-106) mg/dL Calcium (8.5-10.1) mg/dL Magnesium (1.8-2.4) mg/dl Total Bilirubin (0.2-1.0) mg/dL AST (15-37) U/L ALT (16-63) U/L Alkaline Phosphatase (46-116) U/L Ammonia (11-32) umol/L Troponin I (0.00-0.056) ng/mL Total Protein (6.4-8.2) g/dl Albumin (3.4-5.0) g/dl Globulin gm/dL Albumin/Globulin Ratio (1-2) Lipase (73-393) U/L Urine Color Yellow (Yellow) Urine Appearance Clear (Clear) Urine pH 7.0 (5.0-8.0) Ur Specific [place] 1.015 (1.005-1.030) Urine Protein Negative (Negative) Urine Glucose (UA) Trace H (Negative) Urine Ketones Negative (Negative) Urine Occult Blood 1+ H (Negative) Urine Nitrite Negative (Negative) Urine Bilirubin Negative (Negative) Urine Urobilinogen 1.0 (0.2-1.0) Ur Leukocyte Esterase Negative (Negative) Urine RBC 5-10 H (0-5) /hpf Urine WBC 0-5 (0-5) /hpf Ur Epithelial Cells 0-5 (0-5) /hpf Urine Bacteria Not seen (FEW) /hpf Urine Mucus Not seen (FEW) /hpf Urine Opiates Screen (NEGATIVE) Ur Buprenorphine Scrn (NEGATIVE) Ur Oxycodone Screen (NEGATIVE) Urine Methadone Screen (NEGATIVE) Ur Propoxyphene Screen (NEGATIVE) Ur Barbiturates Screen (NEGATIVE) Ur Tricyclics Screen (NEGATIVE) Ur Phencyclidine Scrn (NEGATIVE) Ur Amphetamine Screen (NEGATIVE) U Methamphetamines Scrn (NEGATIVE) U Benzodiazepines Scrn (NEGATIVE) U Cocaine Metab Screen (NEGATIVE) U Marijuana (THC) Screen (NEGATIVE) Ethyl Alcohol (0.00) gm% 08/14/17 08/14/17 08/14/17 Range/Units 13:50 14:00 14:00 WBC (4.23-9.07) K/mm3 RBC (4.63-6.08) M/mm3 Hgb (13.7-17.5) gm/L Hct (40.1-51.0) % MCV (79.0-92.2) fl MCH (25.7-32.2) pg MCHC (32.2-35.5) g/dl RDW Std Deviation (35.1-43.9) fL Plt Count (163-337) K/mm3 Neutrophils % (Manual) (40-60) % Band Neutrophils % (0-10) % Lymphocytes % (Manual) (20-40) % Atypical Lymphs % % Monocytes % (Manual) (2-10) % Eosinophils % (Manual) (0.8-7.0) % Basophils % (Manual) (0.2-1.2) Myelocytes % Platelet Estimate Polychromasia Anisocytosis Target Cells RBC Morph Comment PT (8.0-13.0) SECONDS INR APTT (22-36) SECONDS Sodium 139 (136-145) mEq/L Potassium 3.9 (3.5-5.1) mEq/L Chloride 108 H (98-107) mEq/L Carbon Dioxide 22 (21-32) mEq/L Anion Gap 12.9 (5-15) BUN 11 (7-18) mg/dL Creatinine 1.1 (0.7-1.3) mg/dL Est Cr Clr Drug Dosing 85.11 mL/min Estimated GFR (MDRD) > 60 (>60) mL/min BUN/Creatinine Ratio 10.0 L (14-18) Glucose 196 H (74-106) mg/dL Calcium 9.1 (8.5-10.1) mg/dL Magnesium 1.5 L (1.8-2.4) mg/dl Total Bilirubin 3.3 H (0.2-1.0) mg/dL AST 89 H (15-37) U/L ALT 62 (16-63) U/L Alkaline Phosphatase 148 H (46-116) U/L Ammonia 61 H (11-32) umol/L Troponin I 0.041 (0.00-0.056) ng/mL Total Protein 7.5 (6.4-8.2) g/dl Albumin 2.7 L (3.4-5.0) g/dl Globulin 4.8 gm/dL Albumin/Globulin Ratio 0.6 L (1-2) Lipase 463 H (73-393) U/L Urine Color (Yellow) Urine Appearance (Clear) Urine pH (5.0-8.0) Ur Specific [place] (1.005-1.030) Urine Protein (Negative) Urine Glucose (UA) (Negative) Urine Ketones (Negative) Urine Occult Blood (Negative) Urine Nitrite (Negative) Urine Bilirubin (Negative) Urine Urobilinogen (0.2-1.0) Ur Leukocyte Esterase (Negative) Urine RBC (0-5) /hpf Urine WBC (0-5) /hpf Ur Epithelial Cells (0-5) /hpf Urine Bacteria (FEW) /hpf Urine Mucus (FEW) /hpf Urine Opiates Screen Negative (NEGATIVE) Ur Buprenorphine Scrn Negative (NEGATIVE) Ur Oxycodone Screen Negative (NEGATIVE) Urine Methadone Screen Negative (NEGATIVE) Ur Propoxyphene Screen Negative (NEGATIVE) Ur Barbiturates Screen Negative (NEGATIVE) Ur Tricyclics Screen Negative (NEGATIVE) Ur Phencyclidine Scrn Negative (NEGATIVE) Ur Amphetamine Screen Negative (NEGATIVE) U Methamphetamines Scrn Negative (NEGATIVE) U Benzodiazepines Scrn Negative (NEGATIVE) U Cocaine Metab Screen Negative (NEGATIVE) U Marijuana (THC) Screen Negative (NEGATIVE) Ethyl Alcohol 0.00 (0.00) gm% Meds: Medications Discontinued Medications Generic Name Dose Route Start Last Admin Trade Name Freq PRN Reason Stop Dose Admin Sodium Chloride 1,000 mls @ 999 mls/hr 08/14/17 13:33 08/14/17 13:56 Normal Saline IV 08/14/17 14:33 999 mls/hr ONETIME ONE Administration Magnesium Sulfate 2 gm/ Premix 50 mls @ 50 mls/hr 08/14/17 15:01 08/14/17 15: 10 IV 08/14/17 16:00 50 mls/hr ONETIME ONE Administration Lactulose 20 gm 08/14/17 15:01 08/14/17 15:11 Cephulac PO 08/14/17 15:02 20 gm ONETIME ONE Administration Sodium Chloride 10 ml 08/14/17 13:37 08/14/17 13:58 Saline Flush FLUSH 10 ml ASDIRECTED PRN Administration Keep Vein Open - Radiology Interpretation Free Text/Narrative:: Chest: 2 views of the chest were obtained. Comparison: Prior chest x-ray of 08/05/17. Lungs are hyperinflated compatible with emphysematous change. Nodular density is seen within the left base. Lungs otherwise are clear. Heart size and mediastinum are normal. Bony structures shows minimal degenerative change within the spine. Impression: 1. Nodule within the left lung base. This is not seen on prior chest x-ray and is most likely incidental but I believe a noncontrast chest CT should be performed to completely exclude the possibility of nodule. 2. Emphysematous change. 3. Nothing acute is otherwise seen. - Re-Assessments/Exams Free Text/Narrative Re-Assessment/Exam: 08/14/17 16:12 I reviewed the labs and imaging with patient. Plan will be restart the laculose. Follow-up with GI as planned. Close follow-up with PCP next week to discuss CT of the chest to eval lung nodule. Discharge instructions as documented. Departure - Departure Time of Disposition: 16:20 Disposition: Home, Self-Care 01 Condition: Fair Clinical Impression: Hypomagnesemia, Hepatic encephalopathy Anemia Qualifiers: Anemia type: unspecified type Qualified Code(s): D64.9 - Anemia, unspecified Prescriptions: Lactulose [Cephulac] 20 gm PO BID #1800 ml Instructions: Anemia, Hepatic Encephalopathy, Hypomagnesemia Referrals: PCP,None [Primary Care Provider] - Timothy Crawford MD [Ordering Only Provider] - Rakesh Sevilla PA-C [Physician Helper Driver] - Forms: ED Department Discharge Additional Instructions: Follow-up with GI as plan to discuss hepatitis C treatment and for further management of your elevated ammonia levels. In the meantime, continue on the lactulose 20 g by mouth bid. This has been escribed to medicine shop. Follow-up with Rakesh Sevilla next week to recheck on your symptoms. Also recommend discussing your chest x-ray results. You were found to have a nodule on the left lung and it is recommended that you have a noncontrast chest CT to further evaluate this. Please return to the ER if your symptoms change or worsen. - My Orders Last 24 Hours: My Active Orders 08/14/17 13:33 Cardiac Monitoring [RC] . DIRECTED EKG Documentation Completion [RC] ASDIRECTED Orthostatic Vital Signs [RC] ASDIRECTED EKG 12 Lead [EK] Stat 08/14/17 13:37 Peripheral IV Care [RC] . DIRECTED Peripheral IV Insertion Adult [OM.PC] Routine - Assessment/Plan Last 24 Hours: My Active Orders 08/14/17 13:33 Cardiac Monitoring [RC] . DIRECTED EKG Documentation Completion [RC] ASDIRECTED Orthostatic Vital Signs [RC] ASDIRECTED EKG 12 Lead [EK] Stat 08/14/17 13:37 Peripheral IV Care [RC] . DIRECTED Peripheral IV Insertion Adult [OM.PC] Routine
--- NOTE | 2017-08-14 14:13 | CR ---
Chest: 2 views of the chest were obtained. Comparison: Prior chest x-ray of 08/05/17. Lungs are hyperinflated compatible with emphysematous change. Nodular density is seen within the left base. Lungs otherwise are clear. Heart size and mediastinum are normal. Bony structures shows minimal degenerative change within the spine. Impression: 1. Nodule within the left lung base. This is not seen on prior chest x-ray and is most likely incidental but I believe a noncontrast chest CT should be performed to completely exclude the possibility of nodule. 2. Emphysematous change. 3. Nothing acute is otherwise seen. Diagnostic code #9
[2017-08-14] MEDS ORDERED: Lactulose Soln 10 GM/15 ML 30 ML UD Cup PO ONE (15:01)
[2017-08-14] MEDS ORDERED: Magnesium Sulfate/Water 2 GM in Premix Bag 1 BAG IV ONE (15:01)
== END 2017-08-14 16:35 | disposition home or self-care (01) ==
LOC: JD.ED 12:03
DX: K72.90 Hepatic failure, unspecified without coma (principal); E83.42 Hypomagnesemia; R91.8 Other nonspecific abnormal finding of lung field; E11.9 Type 2 diabetes mellitus without complications; K21.9 Gastro-esophageal reflux disease without esophagitis; I10 Essential (primary) hypertension; F17.210 Nicotine dependence, cigarettes, uncomplicated; Z79.899 Other long term (current) drug therapy
CPT/HCPCS: 36415; 71046; 80053; 80306; 81001; 82140; 83690; 83735; 84484; 85025; 85610; 85730; 93005; 96361; 96365; 99285; A9270; G0480; J7040; J7050; 99283; J3475